=== PATIENT | male | born 1935 | race Caucasian/White ===

== ENCOUNTER 2020-07-12 10:30 | Emergency (ER) | payer BC, MEDICARE ==
[~2020-07-12] VITALS: Ht 167.6 cm; Wt 56.8 kg
[2020-07-12 10:34] VITALS: Ht 167.6 cm; Wt 56.8 kg
[2020-07-12] MEDS ORDERED: REMERON15 MG PO (10:43)
[2020-07-12] MEDS ORDERED: FLOMAX0.4 MG PO (10:43)
[2020-07-12] MEDS ORDERED: KLONOPIN1 MG PO (10:43)
[2020-07-12] MEDS ORDERED: ERGOCALCIF50000 UNIT PO (10:44)
[2020-07-12] MEDS ORDERED: BAYER CHEWABLE81 MG PO (10:45)
[2020-07-12] MEDS ORDERED: ACETAMINOPHEN500 M1 PO (10:45)
[2020-07-12] MEDS ORDERED: MULTI-DAY VITAM1 TAB PO (10:45)
[2020-07-12] MEDS ORDERED: MELATONIN10 M1 PO (10:45)
[2020-07-12] MEDS ORDERED: FERROUS SULFAT325 MG PO (10:46)
[2020-07-12] MEDS ORDERED: VITAMIN D31250 MCG PO (10:46)
[2020-07-12] MEDS ORDERED: METAMUCIL PACKE1 PKT PO (10:46)
[2020-07-12 11:32] LABS: ANION GAP 11.9 mmol/L (8-16); CARBON DIOXIDE 24.5 mmol/L (21.0-32.0); POTASSIUM - SERUM 4.4 mmol/L (3.5-5.1)
[2020-07-12 11:38] LABS: BASOPHILS 0.6 % (0-2); EOSINOPHILS 5.6 % (0-7); HEMATOCRIT 42.6 % (42.0-54.0); HEMOGLOBIN 13.6 g/dL (13.5-17.5); IMMATURE GRANULOCYTES 0.2 % (0-5); LYMPHOCYTE ABS# 3.34 10x3/uL (1.32-3.57); LYMPHOCYTES 36.9 % (15-50); MCH 30.6 pg (26.0-34.0); MCHC 31.9 g/dL (31.0-37.0); MCV 95.9 fL (80.0-100.0); MEAN PLATELET VOLUME 10.8 fL (7.4-10.4); MONOCYTES 8.9 % (2-11); NEUTROPHIL ABS# 4.33 10x3/uL (1.78-5.38); NEUTROPHILS 47.8 % (40-80); PLATELET COUNT 285 10x3/uL (130-400); RBC 4.44 10x6/uL (4.20-6.10); RDW 15.1 % (11.5-14.5); WBC 9.1 10x3/uL (4.8-10.8)
[2020-07-12 11:40] LABS: ALBUMIN 3.7 g/dL (3.4-5.0); BILIRUBIN - TOTAL 0.29 mg/dL (0.2-1.3); PROTEIN - SERUM 8.1 g/dL (6.4-8.2); TROPONIN-I 0.018 ng/mL (0.000-0.060)
[2020-07-12 14:25] VITALS: BP 136/87
== END 2020-07-12 14:15 | disposition home or self-care (01) ==
LOC: D.ER 10:30
PROVIDERS: Emergency Medicine
DX: R10.9 Unspecified abdominal pain (principal); R68.89 Other general symptoms and signs